=== PATIENT | female | born 1950 | race Caucasian/White ===

== ENCOUNTER 2019-12-15 07:10 | Day surgery (SDC) | payer OTHER ==
--- OUTSIDE RECORDS SUMMARY | 2019-12-15 07:13 | XMS REPORT ---
:1950 [facility] Address [address] [place] [address] Care Team Providers Name Role Phone Unavailable Unavailable Unavailable Problems This patient has no known problems. Allergies, Adverse Reactions, Alerts This patient has no known allergies or adverse reactions. Medications This patient has no known medications. Results Test Description Test Time Test Comments Text Results Atomic Results Result Comments Comprehensive Metabolic Panel 2019-10-02 20:45:00 Test Item Value Reference Range Comments Sodium Level (test code=Sodium Level) 139.0 mmol/L 135.0-145.0 Potassium Level (test code=Potassium Level) 4.7 mmol/L 3.5-5.1 Chloride Level (test code=Chloride Level) 101 mmol/L 98-105 CO2 (test code=CO2) 25 mmol/L 22-29 Anion Gap (test code=Anion Gap) 13 mmol/L 7-16 BUN (test code=BUN) 16.30 mg/dL 8.00-23.00 Creatinine Level (test code=Creatinine Level) 1.00 mg/dL 0.50-0.90 BUN/Creat Ratio (test code=BUN/Creat Ratio) 16 Glucose Level (test code=Glucose Level) 85 mg/dL 70-115 Calcium Level (test code=Calcium Level) 9.8 mg/dL 8.3-10.5 Alk Phos (test code=Alk Phos) 77 U/L 35-104 Bilirubin Total (test code=Bilirubin Total) 0.8 mg/dL 0.1-0.9 Albumin Level (test code=Albumin Level) 4.9 g/dL 3.5-5.2 Protein Total (test code=Protein Total) 7.6 g/dL 6.4-8.3 ALT (test code=ALT) 12 U/L 1-33 AST (test code=AST) 21 U/L 1-32 Globulin (test code=Globulin) 2.7 g/dL 2.9-3.1 A/G Ratio (test code=A/G Ratio) 1.8 ratio Lipid [id number] 20:45:00 Test Item Value Reference Range Comments Cholesterol Total (test 163 mg/dL 0-200 RISK OF HEART DISEASEPublished code=Cholesterol Total) by [place] [employer] Analyte Optimal Borderline Increased RiskCHOL <200 200-239 >240TRIG <150 150-199 >200HDL Male >60 <40HDL Female >60 <50LDL <100 130-159 >160LDL Near optimal is 100-129 Triglycerides (test 57 mg/dL 9-200 code=Triglycerides) HDL (test code=HDL) 70 mg/dL 50-60 LDL (test code=LDL) 81 mg/dL 0-130 The equation being used in this calculation is LDL=(Chol - HDL) - (Trig / 5) VLDL (test code=VLDL) 11 mg/dL 5-40 The equation being used in this calculation is VLDL=Trig / 5 Chol/HDL (test 2.3 ratio 0.0-4.4 code=Chol/HDL) LDL/HDL Ratio (test 1 The equation being used in this code=LDL/HDL Ratio) calculation is LDL/HDL Ratio=LDL Calc/HDL Chol Comprehensive Metabolic [id number] 20:45:00 Test Item Value Reference Range Comments Sodium Level (test 139.0 mmol/L 135.0-145.0 code=Sodium Level) Potassium Level (test 4.7 mmol/L 3.5-5.1 code=Potassium Level) Chloride Level (test 101 mmol/L 98-105 code=Chloride Level) CO2 (test code=CO2) 25 mmol/L 22-29 Anion Gap (test 13 mmol/L 7-16 code=Anion Gap) BUN (test code=BUN) 16.30 mg/dL 8.00-23.00 Creatinine Level (test 1.00 mg/dL 0.50-0.90 code=Creatinine Level) BUN/Creat Ratio (test 16 code=BUN/Creat Ratio) Glucose Level (test 85 mg/dL 70-115 code=Glucose Level) Calcium Level (test 9.8 mg/dL 8.3-10.5 code=Calcium Level) Alk Phos (test code=Alk 77 U/L 35-104 Phos) Bilirubin Total (test 0.8 mg/dL 0.1-0.9 code=Bilirubin Total) Albumin Level (test 4.9 g/dL 3.5-5.2 code=Albumin Level) Protein Total (test 7.6 g/dL 6.4-8.3 code=Protein Total) ALT (test code=ALT) 12 U/L 1-33 AST (test code=AST) 21 U/L 1-32 Globulin (test 2.7 g/dL 2.9-3.1 code=Globulin) A/G Ratio (test code=A/G 1.8 ratio Ratio) eGFR AA (test code=eGFR >60 mL/min/1.73 m2 eGFR (estimated AA) Glomerular Filtration Rate) is an estimated value, calculated from the patient's serum creatinine using the MDRD equation. It is NOT the patient's actual GFR. The eGFR provides a more clinically useful measure of kidney disease than serum creatinine alone.This calculation takes sex and race into account, if the information is provided. If the race is not provided, and the patient is -[place]ian, multiply by 1.212. If sex is not provided, and the patient is female, multiply by 0.742. Results for patients <18 years of age have not been validated by the MDRD study and should be interpreted with caution. eGFR Result Interpretation:eGFR > or=60 is in the Normal RangeeGFR < 60 may mean kidney diseaseeGFR < 15 may mean kidney failure Ranges recommended by the National Kidney Foundation, http://nkdep.nih.gov Pro B Natriuretic [id number] 20:45:00 Test Item Value Reference Range Comments NT-proBNP (test code=NT-proBNP) 69 pg/mL 0-124 Comprehensive Metabolic [id number] 20:45:00 Test Item Value Reference Range Comments Sodium Level (test 139.0 mmol/L 135.0-145.0 code=Sodium Level) Potassium Level (test 4.7 mmol/L 3.5-5.1 code=Potassium Level) Chloride Level (test 101 mmol/L 98-105 code=Chloride Level) CO2 (test code=CO2) 25 mmol/L 22-29 Anion Gap (test 13 mmol/L 7-16 code=Anion Gap) BUN (test code=BUN) 16.30 mg/dL 8.00-23.00 Creatinine Level (test 1.00 mg/dL 0.50-0.90 code=Creatinine Level) BUN/Creat Ratio (test 16 code=BUN/Creat Ratio) Glucose Level (test 85 mg/dL 70-115 code=Glucose Level) Calcium Level (test 9.8 mg/dL 8.3-10.5 code=Calcium Level) Alk Phos (test code=Alk 77 U/L 35-104 Phos) Bilirubin Total (test 0.8 mg/dL 0.1-0.9 code=Bilirubin Total) Albumin Level (test 4.9 g/dL 3.5-5.2 code=Albumin Level) Protein Total (test 7.6 g/dL 6.4-8.3 code=Protein Total) ALT (test code=ALT) 12 U/L 1-33 AST (test code=AST) 21 U/L 1-32 Globulin (test 2.7 g/dL 2.9-3.1 code=Globulin) A/G Ratio (test code=A/G 1.8 ratio Ratio) eGFR AA (test code=eGFR >60 mL/min/1.73 m2 eGFR (estimated AA) Glomerular Filtration Rate) is an estimated value, calculated from the patient's serum creatinine using the MDRD equation. It is NOT the patient's actual GFR. The eGFR provides a more clinically useful measure of kidney disease than serum creatinine alone.This calculation takes sex and race into account, if the information is provided. If the race is not provided, and the patient is -[place]banian, multiply by 1.212. If sex is not provided, and the patient is female, multiply by 0.742. Results for patients <18 years of age have not been validated by the MDRD study and should be interpreted with caution. eGFR Result Interpretation:eGFR > or=60 is in the Normal RangeeGFR < 60 may mean kidney diseaseeGFR < 15 may mean kidney failure Ranges recommended by the National Kidney Foundation, http://nkdep.nih.gov eGFR Non-AA (test 54.97 mL/min/1.73 eGFR (estimated code=eGFR Non-AA) m2 Glomerular Filtration Rate) is an estimated value, calculated from the patient's serum creatinine using the MDRD equation. It is NOT the patient's actual GFR. The eGFR provides a more clinically useful measure of kidney disease than serum creatinine alone.This calculation takes sex and race into account, if the information is provided. If the race is not provided, and the patient is -[place]ian, multiply by 1.212. If sex is not provided, and the patient is female, multiply by 0.742. Results for patients <18 years of age have not been validated by the MDRD study and should be interpreted with caution. eGFR Result Interpretation:eGFR > or=60 is in the Normal RangeeGFR < 60 may mean kidney diseaseeGFR < 15 may mean kidney failure Ranges recommended by the National Kidney Foundation, http://nkdep.nih.gov Automated [id number] 20:14:33 Test Item Value Reference Range Comments Neutro Auto (test code=Neutro Auto) 56.3 % 36.0-70.0 Lymph Auto (test code=Lymph Auto) 28.0 % 12.0-44.0 Ritchie Auto (test code=Ritchie Auto) 8.1 % 0.0-11.0 Eos, Auto (test code=Eos, Auto) 6.3 % 0.0-7.0 Basophil Auto (test code=Basophil Auto) 1.1 % 0.0-2.0 Neutro Absolute (test code=Neutro Absolute) 2.5 x10 1.6-7.4 Lymph Absolute (test code=Lymph Absolute) 1.25 x10 .50-4.60 [place] Absolute (test code=[place]itchie Absolute) .36 x10 .00-1.20 Eos Absolute (test code=Eos Absolute) 0.28 x10 0.00-0.74 Baso Absolute (test code=Baso Absolute) 0.05 x10 0.00-0.21 IG [id number] 20:14:33 Test Item Value Reference Range Comments IG (test code=IG) 0.2 % 0.0-5.0 IG Abs (test code=IG Abs) 0 x10 Complete Blood Count with [id number] 20:14:32 Test Item Value Reference Range Comments WBC (test code=WBC) 4.5 x10 4.4-10.5 RBC (test code=RBC) 4.11 x10 3.75-5.20 Hgb (test code=Hgb) 12.9 g/dL 12.2-14.8 Hct (test code=Hct) 38.9 % 36.5-44.4 MCV (test code=MCV) 94.60 fL 80.00-100.00 MCHC (test code=MCHC) 33.20 g/dL 32.00-37.50 RDW CV (test code=RDW CV) 11.9 % 11.5-14.5 MCH (test code=MCH) 31.4 pg 27.0-32.5 Platelets (test 310.0 x10 140.0-440.0 code=Platelets) MPV (test code=MPV) 9.4 fL Slide Review (test code=Slide Auto Auto Result created by Review) [id number]_[id number]_AUTO nRBC (test code=nRBC) 0 NRBC Abs (test code=NRBC Abs) 0.00 x10 IPF (test code=IPF) 0 %
[2019-12-15] MEDS ORDERED: Ringers Lactate 1,000 ML IV ONE (07:53)
[2019-12-15] MEDS ORDERED: LIDOCAINE 1% MPF 5 ML VIAL ONE (08:17)
[2019-12-15] MEDS ORDERED: propofoL 200 MG/20 ML VIAL IV ONE (08:17)
--- NOTE | 2019-12-15 08:36 | ENDO RPT ---
[address], [address] COLONOSCOPY PROCEDURE REPORT EXAM DATE: 12/15/2019 PATIENT NAME: Linda Darden MR #: [id number] BIRTHDATE: 1950 ATTENDING: Kevan Morris DR STATUS: outpatient STEAMBOAT INSPECTOR: Mary Brooks RN and Maciel Linton [facility] INDICATIONS: The patient is a 69 yr old Female here for a colonoscopy due to Surgical planning - tattoo of cancer PROCEDURE PERFORMED: Flexible Sigmoidoscopy MEDICATIONS: Per Anesthesia. ESTIMATED BLOOD LOSS: None CONSENT: The patient understands the risks and benefits of the procedure and understands that these risks include, but are not limited to: sedation, allergic reaction, infection, perforation and/or bleeding. Alternative means of evaluation and treatment include, among others: physical exam, x-rays, and/or surgical intervention. The patient elects to proceed with this endoscopic procedure. DESCRIPTION OF PROCEDURE: During intra-op preparation period all mechanical medical equipment was checked for proper function. Hand hygiene and appropriate measures for infection prevention was taken. Procedure, possible complications, alternatives including, but not limited to possibility of bleeding, perforation, tear, infection, sepsis, need for surgery, need for blood transfusion, were explained to the patient. After the risks, benefits and alternatives of the procedure were thoroughly explained, Informed consent was verified, confirmed and timeout was successfully executed by the treatment team. The patient was placed in the left lateral position. A digital rectal exam was performed and revealed internal hemorrhoids. After appropriate level of anesthesia, the scope was passed. The [id number] ([id number]) endoscope was introduced through the anus and advanced to the sigmoid colon. The quality of the prep was fair. The instrument was then slowly withdrawn as the colon was fully examined. Scope withdrawal time was 5 minutes. COLON FINDINGS: A one-third circumferential firm, ulcerated and fungating mass was found in the sigmoid colon @ approximately 20 cm from anal verge. A tattoo was applied. Injection (tattooing) was performed. Retroflexion was not performed. The scope was then completely withdrawn from the patient and the procedure terminated. ADVERSE EVENTS: There were no complications. IMPRESSIONS: One-third circumferential mass was found in the sigmoid colon; a tattoo was applied; Injection (tattooing) was performed RECOMMENDATIONS: surgery discussed and planning RECALL: Kevan Morris DR eSigned: Kevan Morris DR 12/15/2019 8:36 AM cc: CPT CODES: ICD9 CODES: PATIENT NAME: Lnida DardenLucho MR#: [id number]
[2019-12-15 09:42] LABS: Absolute Lymphocytes (CBC) 1.1 K/uL (0.7-4.9); Basophils % 0.7 % (0-1.3); Hematocrit 28.7 % (36.0-45.0); Lymphocytes % 24.6 % (15.3-44.8); MPV 7.5 fL (7.6-11.3); RBC Red Blood Cell Count 3.11 M/uL (3.86-4.86)
[2019-12-15 09:45] LABS: Protime INR 1.02
[2019-12-15 09:57] LABS: Albumin 3.6 g/dL (3.4-5.0); Bilirubin Direct 0.2 mg/dL (0-0.2); Potassium 3.7 mmol/L (3.5-5.1); Protein, Total 6.4 g/dL (6.4-8.2)
[2019-12-15 10:21] VITALS: O2SAT 96
[2019-12-15 10:29] VITALS: BP 109/67; TEMP 98.5
--- NOTE | 2019-12-15 12:51 | RAD REPORT ---
EXAM DESCRIPTION: CT - Chest Abdomen Pelvis W Cont - 12/15/2019 11:17 am CLINICAL HISTORY: Hematochezia. Abdominal pain. Sigmoid mass COMPARISON: CT chest March 26, 2017 TECHNIQUE: Computed axial tomography of the chest, abdomen and pelvis was obtained. 100 cc Isovue-30 0 was administered intravenously. Oral contrast was given All CT scans are performed using dose optimization technique as appropriate and may include automated exposure control or mA/KV adjustment according to patient size. FINDINGS: Calcified granuloma right lower lobe. The left lung is clear. No mediastinal or hilar lymphadenopathy. No pleural effusion. No pericardial effusion The liver, spleen, pancreas, adrenals and kidneys appear unremarkable. Normal appendix. No evidence of diverticulitis. A sigmoid mass is not clearly visualized on this exam. Bowel masses at times can be difficult to visu jeimy on CT. No contrast was present within the sigmoid colon during the imaging. No ascites. No omental/ mesenteric nodules noted IMPRESSION: A sigmoid colon mass is not clearly visualized on this exam. Contrast was not present wi thin the sigmoid during the imaging. If clinically indicated a CT scan of the pelvis with rectal cont rast may helpful
== END 2019-12-15 11:15 | disposition home or self-care (01) ==
LOC: OR 07:10
PROVIDERS: ATTEND Surgery
PROC: 3E0H8GC Introduction of Other Therapeutic Substance into Lower GI, Via Natural or Artificial Opening Endoscopic (ICD-10-PCS; principal; 2019-12-15 08:30)
DX: C18.7 Malignant neoplasm of sigmoid colon (principal); K64.8 Other hemorrhoids; I10 Essential (primary) hypertension; Z79.02 Long term (current) use of antithrombotics/antiplatelets; Z88.6 Allergy status to analgesic agent; Z83.3 Family history of diabetes mellitus; Z82.49 Family history of ischemic heart disease and other diseases of the circulatory system
CPT/HCPCS: 85025; 36415; 86900; 86850; 84132; 85610; 86901; 85730; 82378; 82248; 80053; 82105; 71260; 74177; 45335; Q9967; J2704; J7120

== ENCOUNTER 2020-01-08 07:03 | Inpatient (IN) | payer OTHER, MEDICARE ==
[2020-01-03 15:06] LABS: Potassium 3.8 mmol/L (3.5-5.1)
[2020-01-03 15:07] LABS: Absolute Lymphocytes (CBC) 1.4 K/uL (0.7-4.9); Basophils % 1.3 % (0-1.3); Hematocrit 32.3 % (36.0-45.0); Lymphocytes % 23.4 % (15.3-44.8); MPV 7.8 fL (7.6-11.3); RBC Red Blood Cell Count 3.59 M/uL (3.86-4.86)
[2020-01-03 15:11] LABS: Protime INR 0.92
--- OUTSIDE RECORDS SUMMARY | 2020-01-08 07:07 | XMS REPORT ---
:1950 [facility] Address [address] [place] [address] Care Team Providers Name Role Phone Unavailable [...] Ratio (test code=A/G Ratio) 1.8 ratio Lipid [id number] 20:45:00 Test Item Value Reference Range Comments Cholesterol Total (test 163 mg/dL 0-200 RISK OF HEART DISEASEPublished code=Cholesterol Total) by [place] [employer] Analyte Optimal Borderline Increased RiskCHOL [...] is LDL/HDL Ratio=LDL Calc/HDL Chol Comprehensive Metabolic [id number] 20:45:00 Test Item Value Reference Range Comments [...] is not provided, and the patient is -Burmese, multiply by 1.212. If sex is not [...] National Kidney Foundation, http://nkdep.nih.gov Pro B Natriuretic [id number] 20:45:00 Test Item Value Reference Range Comments NT-proBNP (test code=NT-proBNP) 69 pg/mL 0-124 Comprehensive Metabolic [id number] 20:45:00 Test Item Value Reference Range Comments [...] is not provided, and the patient is -Burmese, multiply by 1.212. If sex is not [...] is not provided, and the patient is -Burmese, multiply by 1.212. If sex is not [...] by the National Kidney Foundation, http://nkdep.nih.gov Automated [id number] 20:14:33 Test Item Value Reference Range Comments Neutro Auto (test code=Neutro Auto) 56.3 % 36.0-70.0 Lymph Auto (test code=Lymph Auto) 28.0 % 12.0-44.0 [place] Auto (test code=[place] Auto) 8.1 % 0.0-11.0 Eos, Auto (test code=Eos, Auto) 6.3 % 0.0-7.0 Basophil Auto (test code=Basophil Auto) 1.1 % 0.0-2.0 Neutro Absolute (test code=Neutro Absolute) 2.5 x10 1.6-7.4 Lymph Absolute (test code=Lymph Absolute) 1.25 x10 .50-4.60 [place] Absolute (test code=[place] Absolute) .36 x10 .00-1.20 Eos Absolute (test code=Eos Absolute) 0.28 x10 0.00-0.74 Baso Absolute (test code=Baso Absolute) 0.05 x10 0.00-0.21 IG [id number] 20:14:33 Test Item Value Reference Range Comments IG (test code=IG) 0.2 % 0.0-5.0 IG Abs (test code=IG Abs) 0 x10 Complete Blood Count with [id number] 20:14:32 Test Item Value Reference Range Comments [...]
[2020-01-08] MEDS ORDERED: CEFAZOLIN/SWI 1gm 1 GM/10 ML SYR ONE (07:22)
[2020-01-08] MEDS ORDERED: Ringers Lactate 1,000 ML IV ONE (07:22)
[2020-01-08] MEDS ORDERED: propofoL 200 MG/20 ML VIAL IV ONE (07:46)
[2020-01-08] MEDS ORDERED: ROCURONIUM 50 MG/5 ML VIAL IV ONE ×2 (07:47→10:21)
[2020-01-08] MEDS ORDERED: GLYCOPYRROLATE 0.2 MG/ML SYR ONE ×2 (07:48→07:49)
[2020-01-08] MEDS ORDERED: SCOPOLAMINE HYDROBROMIDE PATCH TD ONE (07:48)
[2020-01-08] MEDS ORDERED: FENTANYL CITR 250 MCG/5 ML ONE ×2 (07:49→12:06)
[2020-01-08] MEDS ORDERED: LIDOCAINE 2% MPF 5 ML VIAL ONE (07:49)
[2020-01-08] MEDS ORDERED: ONDANSETRON 4 MG/2 ML VIAL ONE (07:51)
[2020-01-08] MEDS ORDERED: NEOSTIGMINE 1 MG/ML -5 ML ONE (07:52)
[2020-01-08] MEDS ORDERED: MIDAZOLAM HCL 2 MG/2 ML INJ ONE (07:55)
[2020-01-08] MEDS ORDERED: NA CHLORIDE 0.9% 1,000 ML ONE ×3 (08:13→13:54)
[2020-01-08] MEDS ORDERED: BUPIVACA 0.5%/EPI 0.0005%/PF 30 ML VIAL ONE (08:31)
[2020-01-08] MEDS ORDERED: EPHEDRINE SULF 50 MG/ML VIAL ONE ×2 (09:06→11:55)
[2020-01-08] MEDS ORDERED: MORPHINE 10 MG/ML VIAL ONE (09:36)
[2020-01-08] MEDS: NA CHLORIDE 0.9% 1,000 ML ONE ×2 (11:08→11:09)
[2020-01-08] MEDS: Ringers Lactate 1,000 ML IV ONE ×2 (11:09→13:51)
[2020-01-08] MEDS ORDERED: LABETALOL 20 MG/4ML SYRINGE IV ONE (12:12)
--- NOTE | 2020-01-08 14:59 | P.OP ---
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
[2020-01-08] MEDS ORDERED: HYDROMORPHONE/PCA 10 MG/50 ML SYR IV PRN (15:19)
[2020-01-08] MEDS ORDERED: NALOXONE 0.4 MG/ML VIAL IV PRN (15:19)
[2020-01-08 16:28] VITALS: BMI 30.7
[2020-01-08] MEDS ORDERED: INSULIN -REGULAR HUMAN 50 UNIT/0.5 ML ML SQ SCH (16:30)
[2020-01-08] MEDS ORDERED: KCL 20 MEQ/100 mL IVPB 20 MEQ/100 ML BAG IV SCH (17:00)
[2020-01-08] MEDS: D5 0.45 NS 1,000 ML IV SCH (17:03)
[2020-01-08] MEDS: Levofloxacin500mg IV 500 MG/100 ML BAG IV SCH (17:04)
[2020-01-08] MEDS: METRONIDAZOLE 500mg IVPB 500 MG/100 ML BAG IV SCH (17:05)
[2020-01-08] MEDS: INSULIN -REGULAR HUMAN 50 UNIT/0.5 ML ML SQ SCH (18:00)
[2020-01-08] MEDS ORDERED: Ringers Lactate 500 ML IV ONE (18:44)
[2020-01-08 19:01] LABS: Hematocrit 29.2 % (36.0-45.0)
[2020-01-09] MEDS: METRONIDAZOLE 500mg IVPB 500 MG/100 ML BAG IV SCH ×4 (00:07→17:00)
[2020-01-09] MEDS: D5 0.45 NS 1,000 ML IV SCH ×3 (00:07→14:17)
[2020-01-09] MEDS: HYDROMORPHONE HCL 1 MG/ML INJ IV PRN ×6 (00:10→21:22)
--- NOTE | 2020-01-09 00:37 | OP ---
Date of Procedure: 01/08/2020 Surgeon: Brittany Morris MD, Supervisor [employer]iliaries: parts room assistantJc as well as co-surgeon/surgical services assistant Dr. Eduardo Suarez. Preoperative Diagnosis: Rectosigmoid cancer. Postoperative Diagnosis: Rectosigmoid cancer. Procedure Performed: Laparoscopic converted to open left proctosigmoid colectomy. Secondary procedure was proctoscope. Anesthesia: General endotracheal plus local with 0.5% Marcaine with epinephrine. Estimated Blood Loss: 50 mL. Specimen: 1.Rectosigmoid colon. 2.Additional rectal margin which is marked as true margin. Findings: Tattoo the area of the lesion. There was a small ulceration at the residual cancer only n oted on the back table examination of the specimen. Patient had a nasogastric and urinary catheter p laced and left this in. After the procedure, patient was transferred recovery in good condition. Procedure In Detail: After informed was obtained, patient was brought to the operating room, prepped and draped in the usual sterile fashion. After adequate anesthesia was achieved, a supraumbilical a river was anesthetized with 0.25% Marcaine, sharply incised. A 5 mm trocar was introduced in the abdom en without complication. Insufflation was obtained at 15 mmHg at this time. The area was inspected. There was no injury to vital structures upon entry the abdomen at this point. Additional trocar si te was chosen in the right lower quadrant. This was similarly anesthetized, sharply incised. A 5 mm trocar was introduced here with no evidence of complication. The umbilical trocar was then up-sized to a 12 mm under direct visualization without evidence of complication. Additional trocar chosen in the left mid abdomen. This was similarly anesthetized, sharply incised, a 5 mm trocar was introduce d in the abdomen without evidence of complication. The left lower quadrant trocar was then up-sized to a 12 mm under direct visualization without evidence of complication. Additional trocar placed in the suprapubic position, this was This was similarly anesthetized, sharply incised, a 5 mm trocar was introduced the abdomen without evidence of complication. The patient was positioned lifting to the right and head down. Graspers and flip were used to grasp and flip the small bowel into the right hy pochondrium. The liver was inspected at this time and the peritoneal cavity inspected at this time. There was no evidence of peritoneal metastasis or any other metastasis evident on any structures vis ualized throughout the procedure. The rectum was inspected at this time and the tattooing portion wa s found to be predominantly at the rectosigmoid near the confluence of the peritoneal reflection. Th e area was inspected at this point, and there was no evidence of metastasis or transmural involvement of the cancer at this point. I then found and dissected the inferior mesenteric vein at this point at the inferior edge of the pancreas and skeletonized the structure and clipped it with a titanium cl ip and ligated with the LigaSure device. I then continued to dissect out the inferior mesenteric art yuniel planning to spare the left colic branch. At this point, I dissected this circumferentially out a nd created a window under the IMV, dissecting between Toldt fascia and Gerota's fascia laterally on t he colon leaving the MAXINE intact at this point as I continued to move this laterally. I turned my att ention back to the MAXINE and found that the takeoff of the left colic was somewhat higher than anticipa brittany, as such I turned my attention back down to the pelvis, inspecting this area for mobility of the colon. I found the patient had significant intraabdominal pelvic adhesions from previous abdominal s urgery as she had a hysterectomy before in the past. I took some time taking these down using a comb ination electrocautery, blunt dissection and LigaSure device. As such, these were thick fibrous adhe sions and made dissection difficult, as such I decided to convert to an open procedure at this point, I therefore decompressed the abdomen, removed all trocars and extended my midline trocar to a normal midline laparotomy incision. The abdomen was then opened in its entirety under direct visualization without evidence of complication. I then continued to dissect the colon beginning with the white li ne of Toldt laterally and the left lateral colic gutter. The white line was taken down and the colon was mobilized medially. I continued to mobilize the splenic flexure. At this point, I felt down to the rectal confluence and found that there was no palpable masses throughout this, although the canc er previously discovered and biopsy confirmed this adenocarcinoma at approximately 20 cm was fulgurat ed and removed for the most part during endoscopy. The remaining cancer was fulgurated and as such, it was not easily palpable or was not palpable throughout the procedure. I therefore decided to take an additional margin of sigmoid colon at this point and after spending extensive adhesiolysis taking the lateral attachments down, I mobilized the colon sparing the left branch of the colic artery. I then created a window at the just beyond the sigmoid colon on the left colon. A window was created i n the mesentery using an electrocautery. The LigaSure device was used to take the mesentery slightly superiorly towards the wall of the colon and the MARSHAL-75 blue load was fired across the colon at this point with good hemostasis and good staple closure. I then continued to take the left colon down al dante with the associated lymph nodes down to the rectal confluence. I did a mesorectal excision at th is point, taking down the lateral stalks, mobilizing all the various adhesion bands from a bladder. The residual scar tissue was taken down from the vagina as well as the pelvic sidewalls. After this was mobilized, I open the peritoneal reflection and retracted the colon slightly into the abdomen and fired the curve contour TA stapler with a green load and the specimen was then removed and placed on the back table. I opened the specimen, found that the area of ulceration consistent with previous c ancer appeared to be near the distal margin as such I decided to take an additional margin at this po int, I requested the assistance of Dr. Suarez, who came in and helped me with this portion of proced ure. Dr. Suarez entered and assisted me and mobilizing the residual rectal stump and be on the kaitlyn toneal reflection circumferentially not including alleviators. The rectal stump was brought into the field and additional margin was planned at this point. I placed a proctoscope at this point after s crubbing out and inspected the anus and rectum for any evidence of residual cancer, which was not kadi reciated at this point. Dr. Suarez then took a look himself and also by report, found no evidence o f residual cancer. At this point, as such, I scrubbed back in and Dr. Suarez and I both prepped and scrubbed ourselves once again entering the field. We mobilized the rectal stump and took an additio nal 4 cm margin with the same said contour green load stapler. At this point, this was the true dist al margin was marked with a marking stitch, which was the distal extent of the resection and sent off for pathologic examination. All the tattooed material was removed at this point. Dr. Suarez then performed another proctoscopy and did not see any evidence of cancer or any tattooing at this point, other residual colon. As such, I turned my attention back to the preparation of the anastomosis. Th e colon was easy to place into the pelvis without tension and fell easily into here after the previou s mobilization of splenic flexure and as such I used a pursestring device after preparing and clearin g the adipose tissue off the cut edge of the previous left colon staple line. The pursestring device was fired and the residual tissue was cut using a 10 blade. I then opened the end of the colon and placed the anvil in and secured using the attached pursestring device. I cleared once again some fat ty material from the anvil landing zone and Dr. Suarez went below to fire the powered EEA 29 stapler . He passed the stapler easily into the field and placed the spike through the previous staple line. There was good hemostasis at this point. No additional hemostatic maneuvers were required and the anvil was secured to this spike at this point and the stapler was then engaged and fired. I then gra sped the colon and the Dr. Suarez performed an additional proctoscopy and leak test at this point, w hich was found to be intact with no leakage. The both donuts were intact at this point. I then copi ously irrigated the abdomen total completely clear and suctioned out the affluent. There was no verna tional hemostatic measures required. I then placed the omentum around the anastomosis after irrigati ng the bowel multiple times and suctioning out. I then closed the patient's abdominal wall partially with a #1 looped PDS. I placed a Ky-Kathleen suture passer through the right lower quadrant 12 mm trocar hole and closed this with a single interrupted 0-Vicryl suture with good approximation of t issues. I then continued to close the abdomen protecting the bowel with fish until the very end of t he procedure and closed the abdomen with a #1 looped PDS with good approximation of tissues. I then copiously irrigated the patient's subcutaneous tissues and all skin incisions were closed with interr upted nacho and a sterile dressing. Abdominal binder placed over top. Patient tolerated the proce dure without evidence of complication, transecting good condition. All counts were correct at the en d of case. MANUEL/EUNICE Voice ID: [id number] Report ID: [id number]
[2020-01-09 04:27] LABS: Hematocrit 28.7 % (36.0-45.0)
[2020-01-09 04:37] LABS: Albumin 2.7 g/dL (3.4-5.0); Bilirubin Total 0.6 mg/dL (0.2-1.0); Magnesium 1.7 mg/dL (1.8-2.4); Phosphorus 2.3 mg/dL (2.5-4.9); Potassium 3.8 mmol/L (3.5-5.1); Protein, Total 5.4 g/dL (6.4-8.2)
[2020-01-09 04:47] LABS: Protime INR 1.04
[2020-01-09] MEDS: INSULIN -REGULAR HUMAN 50 UNIT/0.5 ML ML SQ SCH ×5 (05:41→21:00)
[2020-01-09] MEDS: POTASS/SODIUM PHOSPHATE 1 PKT POWD.PACK PO SCH ×3 (07:00→08:52)
[2020-01-09] MEDS ORDERED: POTASSIUM 25 MEQ EFFERV TAB PO ONE (07:00)
[2020-01-09] MEDS ORDERED: MAGNESIUM SULFATE 1 gm IVPB 1 GM/100 ML BAG IV ONE (07:07)
[2020-01-09] MEDS: ENOXAPARIN 40 MG/0.4 ML SQ SCH (09:05)
[2020-01-09 12:16] LABS: Hematocrit 28.2 % (36.0-45.0)
[2020-01-09] MEDS: Levofloxacin500mg IV 500 MG/100 ML BAG IV SCH (16:00)
[2020-01-09 19:53] LABS: Hematocrit 27.5 % (36.0-45.0)
[2020-01-10] MEDS: D5 0.45 NS 1,000 ML IV SCH ×3 (00:08→09:22)
[2020-01-10] MEDS: METRONIDAZOLE 500mg IVPB 500 MG/100 ML BAG IV SCH ×2 (00:08→05:34)
[2020-01-10] MEDS: HYDROMORPHONE HCL 1 MG/ML INJ IV PRN ×2 (00:13→05:35)
[2020-01-10 04:19] LABS: Hematocrit 26.9 % (36.0-45.0)
[2020-01-10 04:37] LABS: Albumin 2.4 g/dL (3.4-5.0); Bilirubin Total 0.6 mg/dL (0.2-1.0); Phosphorus 1.3 mg/dL (2.5-4.9); Potassium 3.8 mmol/L (3.5-5.1); Protein, Total 5.5 g/dL (6.4-8.2)
[2020-01-10] MEDS ORDERED: POTASSIUM 25 MEQ EFFERV TAB PO ONE (06:20)
[2020-01-10] MEDS: POTASS/SODIUM PHOSPHATE 1 PKT POWD.PACK PO SCH ×3 (07:00→09:19)
[2020-01-10] MEDS: INSULIN -REGULAR HUMAN 50 UNIT/0.5 ML ML SQ SCH ×4 (07:30→21:00)
[2020-01-10] MEDS: ENOXAPARIN 40 MG/0.4 ML SQ SCH ×2 (07:55→07:57)
--- NOTE | 2020-01-10 09:00 | P.PN ---
Subjective Date of Service: 01/09/20 Chief Complaint: S/P Rectosigmoid Colectomy Subjective: Improving (Patient feels well, sitting up in Bed, pain under control , had some hypotension to 90s systolic, but HR stable.) Physical Examination - Vital Signs Temperature: 98.8 F Blood Pressure: 111/58 Pulse: 90 Respirations: 16 Pulse Ox (%): 90 - Physical Exam General: Alert, In no apparent distress, Cooperative HEENT: Mucous membr. moist/pink Neck: Supple Respiratory: Clear to auscultation bilaterally, Diminished Cardiovascular: Normal pulses, Regular rate/rhythm Gastrointestinal: Other (soft, mild appropriate TTP, mild distention, Incision clean and dry, binder in place. ) Integumentary: No rashes, No breakdown Neurological: Normal speech, Normal affect Urinary: Pisano catheter - Studies Laboratory Data (last 24 hrs) 01/10/20 03:55: Hgb 8.8 L, Hct 26.9 L 01/10/20 03:55: Sodium 136, Potassium 3.8, BUN 6 L, Creatinine 0.84, Glucose 127 H, Phosphorus 1.3 L, Magnesium 2.0, Total Bilirubin 0.6, AST 20, ALT 15, Alkaline Phosphatase 55 01/09/20 19:36: Hgb 9.0 L, Hct 27.5 L 01/09/20 11:55: Hgb 9.3 L, Hct 28.2 L Assessment And Plan - Current Problems (Diagnosis) (1) Rectosigmoid cancer Onset Date: ~01/09/20 Current Visit: Yes Status: Acute Plan: POD #1 S/P Lap converted to open Rectosigmoid colectomy with primary anastamosis - Neuro: continue current IV pain regime - CVS: patient received bolus IV fluids of LR. Intermittent tachycardia likley pain related, hypotension stable and improving to 100s systolic - Pulm: CTA, but IS ~500cc, continue incentive spirometry with goal 15cc/kg - GI: continue serial exams, keep abdominal binder, await bowel function, has passed minimal gas - Renal: catheter in place, good urine output, clear urine - FEN: IVF @ 125cc/hr. continue potassium, magnesium, phos replacement protocol , DC NG tube start clears - ID: [email or web address] / flagyl, to DC tomorrow - Prophylaxis: start lovenox, SCDs, insulin sliding scale - PT: ambulate with assist
--- NOTE | 2020-01-10 09:12 | P.PN ---
Subjective Date of Service: 01/10/20 Chief Complaint: S/P Rectosigmoid Colectomy Subjective: Improving (Patient is ambulatory, tolerated clears, no gas last evening.) Physical Examination - Vital Signs Temperature: 98.8 F Blood Pressure: 111/58 Pulse: 90 Respirations: 16 Pulse Ox (%): 90 - Physical Exam General: Alert, In no apparent distress, Cooperative HEENT: Mucous membr. moist/pink Neck: Supple Respiratory: Clear to auscultation bilaterally, Normal air movement Cardiovascular: No edema, Normal pulses, Regular rate/rhythm Gastrointestinal: Other (soft, mild appropriate TTP, mild disention, incision clean and dry) Integumentary: No rashes Neurological: Normal speech, Normal affect Urinary: Bianchi catheter - Studies Laboratory Data (last 24 hrs) 01/10/20 03:55: Hgb 8.8 L, Hct 26.9 L 01/10/20 03:55: Sodium 136, Potassium 3.8, BUN 6 L, Creatinine 0.84, Glucose 127 H, Phosphorus 1.3 L, Magnesium 2.0, Total Bilirubin 0.6, AST 20, ALT 15, Alkaline Phosphatase 55 01/09/20 19:36: Hgb 9.0 L, Hct 27.5 L 01/09/20 11:55: Hgb 9.3 L, Hct 28.2 L Assessment And Plan - Current Problems (Diagnosis) (1) Rectosigmoid cancer Onset Date: ~01/09/20 Current Visit: Yes Status: Acute Plan: POD #1 S/P Lap converted to open Rectosigmoid colectomy with primary anastamosis - Neuro: continue current IV pain regime, wean IV pain meds, transition to PO - CVS: patient received bolus IV fluids of LR. Intermittent tachycardia likley pain related, hypotension stable and improving to 100s systolic, will decrease IV fluids to 75cc/hr - Pulm: CTA, but IS ~1500cc, continue incentive spirometry with goal 15cc/kg - GI: continue serial exams, keep abdominal binder, await bowel function, has passed minimal gas - Renal: catheter in place, good urine output, clear urine, will DC bianchi today - FEN: IVF @ 75cc/hr. continue potassium, magnesium, phos replacement protocol, DC NG tube start clears - ID: [email or web address] / flagyl, will DC - Prophylaxis: continue lovenox, SCDs, insulin sliding scale to AC/HS - PT: ambulate with assist
[2020-01-10] MEDS ORDERED: HYDROCODONE/APAP 5/325 MG TAB PO PRN (09:26)
[2020-01-10] MEDS: ONDANSETRON 4 MG (ODT) TAB PO PRN (14:22)
[2020-01-11] MEDS: D5 0.45 NS 1,000 ML IV SCH ×2 (00:23→07:19)
[2020-01-11] MEDS: ONDANSETRON 4 MG (ODT) TAB PO PRN (04:04)
[2020-01-11 04:39] LABS: Albumin 2.5 g/dL (3.4-5.0); Bilirubin Total 0.5 mg/dL (0.2-1.0); Magnesium 2.2 mg/dL (1.8-2.4); Phosphorus 1.9 mg/dL (2.5-4.9); Potassium 4.1 mmol/L (3.5-5.1); Protein, Total 5.8 g/dL (6.4-8.2)
[2020-01-11] MEDS: ONDANSETRON 4 MG/2 ML VIAL IV PRN ×3 (07:18→19:14)
[2020-01-11] MEDS: INSULIN -REGULAR HUMAN 50 UNIT/0.5 ML ML SQ SCH ×4 (07:30→21:00)
[2020-01-11] MEDS: POTASS/SODIUM PHOSPHATE 1 PKT POWD.PACK PO SCH ×3 (09:00→11:00)
[2020-01-11] MEDS ORDERED: SODIUM CHLORIDE 0.9% 10ML INJ IV PRN (14:09)
--- NOTE | 2020-01-11 14:39 | P.PN ---
Subjective Date of Service: 01/11/20 Chief Complaint: S/P Rectosigmoid Colectomy Subjective: Other (Patient had been tolerating clears, then fulls, but had some nausea, and an episode of vomiting last evening .) Physical Examination - Vital Signs Temperature: 98.4 F Blood Pressure: 113/71 Pulse: 102 Respirations: 16 Pulse Ox (%): 96 - Physical Exam General: Alert, In no apparent distress, Oriented x3, Cooperative Respiratory: Clear to auscultation bilaterally Gastrointestinal: Non-distended, No ascites, Other (appropriate TTP, incisions clean and dry) Integumentary: No rashes, No breakdown, No significant lesion Neurological: Normal speech - Studies Laboratory Data (last 24 hrs) 01/11/20 03:53: Sodium 139, Potassium 4.1, BUN 7, Creatinine 0.77, Glucose 143 H , Phosphorus 1.9 L, Magnesium 2.2, Total Bilirubin 0.5, AST 17, ALT 15, Alkaline Phosphatase 60 Assessment And Plan - Current Problems (Diagnosis) (1) Rectosigmoid cancer Onset Date: ~01/09/20 Current Visit: Yes Status: Acute Plan: POD #3 S/P Lap converted to open Rectosigmoid colectomy with primary anastamosis - Neuro: continue current IV pain regime, wean IV pain meds, transition to PO - CVS: patient received bolus IV fluids of LR. Intermittent tachycardia likley pain related, hypotension stable and improving to 100s systolic, will decrease IV fluids to 75cc/hr, consider diruresis for mild lower extremity bilateral swelling. Patient normally takes diuresis prior to admission - Pulm: CTA, but IS ~1500cc, continue incentive spirometry with goal 15cc/kg - GI: continue serial exams, keep abdominal binder, await bowel function, has passed minimal gas - Renal: good urine output, clear urine, - FEN: IVF @ 75cc/hr. continue potassium, magnesium, phos replacement protocol, continue clears - ID: levaquin / flagyl, will DC - Prophylaxis: continue lovenox, SCDs, insulin sliding scale to AC/HS - PT: ambulate with assist - consult Dr. Nguyen for medical management
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
--- NOTE | 2020-01-11 15:54 | RAD REPORT ---
EXAM DESCRIPTION: RAD - Chest Single View - 01/11/2020 3:45 pm CLINICAL HISTORY: suspect atelectasis, post surgery Chest pain. COMPARISON: No comparisons FINDINGS: Portable technique limits examination quality. Linear atelectasis is present in the right lung base with elevation the right hemidiaphragm. The lung s are otherwise grossly clear. The heart is normal in size. No displaced fractures.
[2020-01-11] MEDS ORDERED: D5 0.45 NS 1,000 ML IV SCH (16:00)
--- NOTE | 2020-01-11 16:52 | RAD REPORT ---
EXAM DESCRIPTION: US - Extrem Venous W Compress Silas - 01/11/2020 4:40 pm CLINICAL HISTORY: swelling R>L, Post surgery Bilateral leg edema and swelling. COMPARISON: No comparisons TECHNIQUE: Real-time sonographic interrogation of the left and right lower extremity deep venous sys tems was performed. FINDINGS: Normal compressibility, flow augmentation, phasic flow and spontaneous flow is identified in both the left and right lower extremity deep venous systems. Small right Whitaker's cyst noted. IMPRESSION: No sonographic evidence of left or right lower extremity deep venous thrombosis.
[2020-01-11] MEDS: ROSUVASTATIN 10 MG TAB PO SCH (21:00)
[2020-01-11] MEDS: ENOXAPARIN 40 MG/0.4 ML SQ SCH (21:40)
[2020-01-12 06:54] LABS: Absolute Lymphocytes (CBC) 0.8 K/uL (0.7-4.9); Basophils % 0.4 % (0-1.3); Hematocrit 28.1 % (36.0-45.0); Lymphocytes % 7.9 % (15.3-44.8); MPV 7.8 fL (7.6-11.3); RBC Red Blood Cell Count 3.09 M/uL (3.86-4.86)
[2020-01-12 07:09] LABS: Albumin 2.2 g/dL (3.4-5.0); Bilirubin Total 0.4 mg/dL (0.2-1.0); Magnesium 2.1 mg/dL (1.8-2.4); Phosphorus 2.4 mg/dL (2.5-4.9); Potassium 3.8 mmol/L (3.5-5.1); Protein, Total 5.3 g/dL (6.4-8.2)
[2020-01-12] MEDS: INSULIN -REGULAR HUMAN 50 UNIT/0.5 ML ML SQ SCH ×4 (07:30→20:27)
--- NOTE | 2020-01-12 08:38 | P.PN ---
Subjective Date of Service: 01/12/20 Primary Care Provider: Dr. Fountain Chief Complaint: S/P Rectosigmoid Colectomy Subjective: Improving (Patient had no pain, no nausea, tolerating fulls, ambulatory, took no pain meds last evening. no bowel movement yet, no gas.) Physical Examination - Vital Signs Temperature: 98.1 F Blood Pressure: 115/67 Pulse: 111 Respirations: 18 Pulse Ox (%): 92 - Physical Exam General: Alert, In no apparent distress, Cooperative HEENT: Mucous membr. moist/pink Respiratory: Clear to auscultation bilaterally, Normal air movement Cardiovascular: Regular rate/rhythm Gastrointestinal: Other (soft, mild appropriate TTP, ND, incisions remain clean and dry, no discharge) Integumentary: No significant lesion, No tenderness/swelling Neurological: Normal speech, Normal affect - Studies Laboratory Data (last 24 hrs) 01/12/20 05:59: WBC 10.3 D, Hgb 9.1 L, Hct 28.1 L, Plt Count 289 01/12/20 05:59: Sodium 139, Potassium 3.8, BUN 13, Creatinine 0.85, Glucose 109 H, Phosphorus 2.4 L, Magnesium 2.1, Total Bilirubin 0.4, AST 11 L, ALT 14, Alkaline Phosphatase 59 Assessment And Plan - Current Problems (Diagnosis) (1) Rectosigmoid cancer Onset Date: ~01/09/20 Current Visit: Yes Status: Acute Plan: POD #4 S/P Lap converted to open Rectosigmoid colectomy with primary anastamosis - Neuro: wean IV pain meds, transition to PO - CVS: wean IV fluids to 30cc/hr, consider diruresis for mild lower extremity bilateral swelling PRN . Patient normally takes diuresis prior to admission - Pulm: CTA, but IS ~1500cc, continue incentive spirometry with goal 15cc/kg - GI: continue serial exams, keep abdominal binder, await bowel function, has passed minimal gas - Renal: good urine output, clear urine, - FEN: IVF @ 30cc/hr. continue potassium, magnesium, phos replacement protocol, continue full liquid diet - ID: normal WBC / Neutrophils - Prophylaxis: continue lovenox, SCDs, insulin sliding scale to AC/HS - PT: ambulate with assist - consult Dr. Nguyen for medical management - consider starting all home meds
[2020-01-12] MEDS ORDERED: HOME MED 1 EA UNK (Rosuvastatin Calcium [Rosuvastatin Calcium] 20 MG) PO SCH (09:00)
[2020-01-12] MEDS ORDERED: ESCITALOPRAM OXALATE 10 MG PO SCH (09:00)
[2020-01-12] MEDS: D5 0.45 NS 1,000 ML IV SCH ×2 (09:00→20:27)
[2020-01-12] MEDS: PANTOPRAZOLE 40 MG INJ IVP SCH (09:05)
[2020-01-12] MEDS: ESCITALOPRAM 20 MG TAB PO SCH (09:05)
--- NOTE | 2020-01-12 09:31 | P.PN ---
Subjective Date of Service: 01/12/20 Primary Care Provider: Dr. Fountain Chief Complaint: S/P Rectosigmoid Colectomy Subjective: Improving Physical Examination - Vital Signs Temperature: 98.1 F Blood Pressure: 115/67 Pulse: 111 Respirations: 18 Pulse Ox (%): 92 - Physical Exam General: Alert, In no apparent distress, Oriented x3 HEENT: Atraumatic Neck: Supple Respiratory: Clear to auscultation bilaterally, Normal air movement Cardiovascular: Normal pulses, Regular rate/rhythm Gastrointestinal: Normal bowel sounds, Soft and benign, Non-distended, No masses , No rebound, No guarding Integumentary: No erythema, No warmth, No cyanosis Neurological: Normal speech, Normal strength at 5/5 x4 extr, Normal tone - Studies Laboratory Data (last 24 hrs) 01/12/20 21:00: Hgb Cancelled, Hct Cancelled 01/12/20 13:00: Hgb Cancelled, Hct Cancelled 01/12/20 05:59: WBC 10.3 D, Hgb 9.1 L, Hct 28.1 L, Plt Count 289 01/12/20 05:59: Sodium 139, Potassium 3.8, BUN 13, Creatinine 0.85, Glucose 109 H, Phosphorus 2.4 L, Magnesium 2.1, Total Bilirubin 0.4, AST 11 L, ALT 14, Alkaline Phosphatase 59 Medications List Reviewed: Yes Assessment & Plan Discharge Plan: Home Plan to discharge in: 48 Hours Physician Review Additional Text: Impression: Colon cancer status post proctosigmoidectomy, pathology showing moderately differentiated adenocarcinoma Possible postop ileus Postoperative anemia Edema to the lower extremity, right greater than left Hypertension Hyperlipidemia Depression CAD Plan: Colon cancer status post proctosigmoidectomy, pathology showing moderately differentiated adenocarcinoma: Patient is postop surgery. Patient continues to improve. Less edema noted to the lower extremity. Venous Doppler negative. Chest x-ray unremarkable. Encourage incentive spirometer and ambulation. Await echocardiogram. Will decrease IV fluids. Will discuss further with surgery. Anticipate discharge in the next 1-2 days with clinical improvement. Still no passage of gas. Possible postop ileus: Patient improved. No significant nausea. Still no passage of gas. Encouraged incentive spirometer and ambulation. Postoperative anemia: Overall stable. Will monitor closely. Edema to the lower extremity, right greater than left: Venous Doppler negative. Will decrease IV fluids. Encourage ambulation. Hypertension: Blood pressure improved all within normal range. Will consider restarting blood pressure medication with beta-berto if blood pressure increase. Will monitor closely. Hyperlipidemia: Continue Crestor Depression: Continue Lexapro CAD: Patient with history of CAD. In 2015 she had a stress test which was abnormal. She had a heart catheterization thereafter. Patient did not require stents at that time. Cardiology recommended to continue with aspirin and Plavix. Continue to hold aspirin and Plavix at this time. Will discuss with cardiology. Will obtain echocardiogram. Time Spent Managing Pts Care (In Minutes): 55
--- NOTE | 2020-01-12 13:11 | ECHO ---
HEIGHT: 5 ft 8 in WEIGHT: 202 lb 0 oz DATE OF STUDY: 01/12/[address]: Wiliam Nguyen DO 2-DIMENSIONAL: YES M.MODE: YES DOPPLER: YES COLOR FLOW: YES TDS: PORTABLE: DEFINITY: BUBBLE STUDY: DIAGNOSIS: HISTORY OF CORNARY ARTERY DISEASE, EVALUATE FOR CONGESTIVE HEART FAILURE CARDIAC HISTORY: CATHERIZATION: YES SURGERY: NO PROSTHETIC VALVE: NO PACEMAKER: NO MEASUREMENTS (cm) DIASTOLIC (NORMALS) SYSTOLIC (NORMALS) IVSd 1.2 (0.6-1.2) LA Diam 2.9 (1.9-4.0) LVEF 75% LVIDd 3.5 (3.5-5.7) LVIDs 2.0 (2.0-3.5) %FS 43% LVPWd 1.3 (0.6-1.2) Ao Diam 2.6 (2.0-3.7) 2 DIMENSIONAL ASSESSMENT: RIGHT ATRIUM: NORMAL LEFT ATRIUM: NORMAL RIGHT VENTRICLE: NORMAL LEFT VENTRICLE: NORMAL TRICUSPID VALVE: NORMAL MITRAL VALVE: NORMAL PULMONIC VALVE: NORMAL AORTIC VALVE: NORMAL PERICARDIAL EFFUSION: NONE AORTIC ROOT: NORMAL LEFT VENTRICULAR WALL MOTION: DOPPLER/COLOR FLOW: COMMENTS: NORMAL 2-DIMENSIONAL ECHOCARDIOGRAM WITH DOPPLER. NO WALL MOTION ABNORMALITY. NO EFFUSION. TECHNOLOGIST: DOLLY JEROME
[2020-01-12] MEDS: ENOXAPARIN 40 MG/0.4 ML SQ SCH (20:25)
[2020-01-12] MEDS: ROSUVASTATIN 10 MG TAB PO SCH (20:25)
[2020-01-13 06:04] LABS: Potassium 3.5 mmol/L (3.5-5.1)
[2020-01-13 06:05] LABS: Albumin 2.3 g/dL (3.4-5.0); Bilirubin Total 0.4 mg/dL (0.2-1.0); Phosphorus 2.7 mg/dL (2.5-4.9); Protein, Total 5.3 g/dL (6.4-8.2)
[2020-01-13] MEDS ORDERED: POTASSIUM CL SA 10 MEQ TAB PO ONE ×2 (06:35→08:00)
[2020-01-13 06:40] LABS: Thyroid Stimulating Hormone 6.37 uIU/mL (0.360-3.740)
[2020-01-13] MEDS: INSULIN -REGULAR HUMAN 50 UNIT/0.5 ML ML SQ SCH ×2 (07:30→11:30)
[2020-01-13 08:33] VITALS: O2SAT 94
[2020-01-13] MEDS: ESCITALOPRAM 20 MG TAB PO SCH (09:00)
[2020-01-13] MEDS: PANTOPRAZOLE 40 MG INJ IVP SCH (09:00)
--- NOTE | 2020-01-13 10:17 | P.PN ---
Subjective Date of Service: 01/13/20 Primary Care Provider: Dr. Fountain Chief Complaint: S/P Rectosigmoid Colectomy Subjective: Improving, Doing well, Other (Patient passing stool.) Physical Examination - Vital Signs Temperature: 97.3 F Blood Pressure: 123/73 Pulse: 75 Respirations: 18 Pulse Ox (%): 93 - Physical Exam General: Alert, In no apparent distress, Oriented x3, Cooperative HEENT: Atraumatic Neck: Supple Respiratory: Clear to auscultation bilaterally, Normal air movement Cardiovascular: Normal pulses, Regular rate/rhythm Gastrointestinal: Normal bowel sounds, Soft and benign, Non-distended, Other ( Postop changes noted.) Neurological: Normal speech, Normal strength at 5/5 x4 extr, Normal tone, Normal affect - Studies Laboratory Data (last 24 hrs) 01/13/20 05:34: Sodium 139, Potassium 3.5, BUN 12, Creatinine 0.83, Glucose 98, Phosphorus 2.7, Magnesium 2.0, Total Bilirubin 0.4, AST 10 L, ALT 16, Alkaline Phosphatase 49 Medications List Reviewed: Yes Assessment & Plan Discharge Plan: Home Plan to discharge in: 24 Hours Physician Review Additional Text: Impression: Colon cancer status post proctosigmoidectomy, pathology showing moderately differentiated adenocarcinoma Possible postop ileus Postoperative anemia Edema to the lower extremity, right greater than left Hypertension Hyperlipidemia Depression CAD Plan: Colon cancer status post proctosigmoidectomy, pathology showing moderately differentiated adenocarcinoma: Patient has done well. Will discontinue IV fluids. Consider discharge today. Medically stable for discharge. Will discuss with surgery. Possible postop ileus: Patient improved. Patient has passed gas and stool. Consider discharge today. Encouraged incentive spirometer and ambulation. Postoperative anemia: Overall stable. Will monitor closely. Edema to the lower extremity, right greater than left: Venous Doppler negative. Discontinue IV fluids. Encourage low-salt diet. Encourage ambulation. Hypertension: Blood pressure improved all within normal range. No need for blood pressure at this time. May need to consider discontinuing blood pressure medication at discharge and monitoring. Will discuss with surgery. Hyperlipidemia: Continue Crestor Depression: Continue Lexapro CAD: Patient with history of CAD. In 2016 she had a stress test which was abnormal. She had a heart catheterization thereafter. Patient did not require stents at that time. Cardiology recommended to continue with aspirin and Plavix. Continue to hold aspirin and Plavix at this time. Will discuss with cardiology. Will obtain echocardiogram. Time Spent Managing Pts Care (In Minutes): 55
[2020-01-13 14:31] VITALS: BP 125/80; TEMP 97.8
== END 2020-01-13 13:45 | disposition home or self-care (01) | DRG 330 ==
LOC: OR 07:03 → 4TH 15:55 → OBSVTOIN 01-09 07:39
PROVIDERS: ADMIT Surgery; ATTEND Surgery
PROC: 0DTN0ZZ Resection of Sigmoid Colon, Open Approach (ICD-10-PCS; principal; 2020-01-08 08:30)
PROC: 0DBP0ZZ Excision of Rectum, Open Approach (ICD-10-PCS; 2020-01-08 08:30)
DX: C19 Malignant neoplasm of rectosigmoid junction (principal); K56.7 Ileus, unspecified; D64.9 Anemia, unspecified; I10 Essential (primary) hypertension; E78.5 Hyperlipidemia, unspecified; F32.9 Major depressive disorder, single episode, unspecified; I25.10 Atherosclerotic heart disease of native coronary artery without angina pectoris
CPT/HCPCS: 36415; 71045; 80048; 80053; 82947; 83735; 84100; 84439; 84443; 85014; 85018; 85025; 85610; 85730; 86850; 86900; 86901; 88307; 88309; 93306; 93970; 94760; 97116; 97161; 97530; C9113; G0378; J0690; J1170; J1650; J2250; J2405; J2704; J2710; J3010; J3475; J7030; J7120; J7799

== ENCOUNTER 2022-10-23 06:10 | Day surgery (SDC) | payer OTHER, MEDICARE ==
[2022-10-22 10:22] LABS: Potassium 3.5 mmol/L (3.5-5.1)
--- NOTE | 2022-10-22 16:00 | EKG ---
Test Date: 2022-10-22 Test Time: 09:46:18 Tank Welder: CATHIE MEASUREMENT RESULTS: Intervals: Rate: 61 [place]: 162 QRSD: 102 QT: 418 QTc: 420 [place]: P: 67 [place]: 162 QRS: -28 T: 34 INTERPRETIVE STATEMENTS: Normal sinus rhythm Minimal voltage criteria for LVH, may be normal variant Borderline ECG Compared to ECG 04/07/2005 11:25:00 Left ventricular hypertrophy now present Sinus bradycardia no longer present Electronically Signed On 10-22-22 15:59:31 [place] ADMINISTRATOR by Jann Ag
[2022-10-23] MEDS ORDERED: Ringers Lactate 1,000 ML IV ONE (06:16)
[2022-10-23] MEDS ORDERED: propofoL 200 MG/20 ML VIAL IV ONE (07:54)
[2022-10-23] MEDS ORDERED: LIDOCAINE 1% MPF 5 ML VIAL ONE (07:54)
--- NOTE | 2022-10-23 08:31 | ENDO RPT ---
[address], [address] COLONOSCOPY PROCEDURE REPORT EXAM DATE: 10/23/2022 PATIENT NAME: Linda Darden MR #: [id number] BIRTHDATE: 1950 ATTENDING: Kevan Morris DR STATUS: outpatient COMPRESS TRUCKER: Suzi Feliz RN and Maciel Linton [facility] INDICATIONS: The patient is a 72 yr old Female here for a colonoscopy due to History of Colon Cancer PROCEDURE PERFORMED: Colonoscopy with biopsy - cold polypectomy MEDICATIONS: Per Anesthesia. ESTIMATED BLOOD LOSS: None CONSENT: The patient understands the risks and benefits of the procedure and understands that these risks include, but are not limited to: sedation, allergic reaction, infection, perforation and/or bleeding. Alternative means of evaluation and treatment include, among others: physical exam, x-rays, and/or surgical intervention. The patient elects to proceed with this endoscopic procedure. DESCRIPTION OF PROCEDURE: During intra-op preparation period all mechanical medical equipment was checked for proper function. Hand hygiene and appropriate measures for infection prevention was taken. Procedure, possible complications, alternatives including, but not limited to possibility of bleeding, perforation, tear, infection, sepsis, need for surgery, need for blood transfusion, were explained to the patient. After the risks, benefits and alternatives of the procedure were thoroughly explained, Informed consent was verified, confirmed and timeout was successfully executed by the treatment team. The patient was placed in the left lateral position. A digital rectal exam was performed and revealed internal hemorrhoids. After appropriate level of anesthesia, the scope was passed. The [id number] ([id number]) endoscope was introduced through the anus and advanced to the cecum, which was identified by both the appendix and ileocecal valve. The quality of the prep was fair. The instrument was then slowly withdrawn as the colon was fully examined. Scope withdrawal time was 11 minutes. COLON FINDINGS: Two smooth sessile polyps ranging between 3-5mm in size with friable surfaces were found at the hepatic flexure and @ the [place]-Rectal Anastamosis in LEFT side. A polypectomy was performed with cold forceps. The resection was complete, the polyp tissue was completely retrieved and sent to histology. Retroflexed views revealed no abnormalities. The scope was then completely withdrawn from the patient and the procedure terminated. ADVERSE EVENTS: There were no complications. IMPRESSIONS: Two sessile polyps ranging between 3-5mm in size were found at the hepatic flexure; polypectomy was performed in a piecemeal fashion with cold forceps RECOMMENDATIONS: 1. avoid NSAIDS for 2 weeks 2. fiber rich diet 3. Monitor for any evidence of rectal bleeding. 4. yearly hemoquant 5. hemorrhoidal hygiene RECALL: for Colonoscopy, pending biopsy results. Kevan Morris DR eSigned: Kevan Morris DR 10/23/2022 8:30 AM cc: CPT CODES: ICD9 CODES: PATIENT NAME: Linda Darden MR#: [id number]
[2022-10-23 10:58] VITALS: BP 107/64; TEMP 97.2; O2SAT 100
== END 2022-10-23 08:58 | disposition home or self-care (01) ==
LOC: OR 06:10
PROVIDERS: ATTEND Surgery
PROC: 0DBL8ZX Excision of Transverse Colon, Via Natural or Artificial Opening Endoscopic, Diagnostic (ICD-10-PCS; principal; 2022-10-23 08:00)
DX: Z85.038 Personal history of other malignant neoplasm of large intestine (principal); D12.3 Benign neoplasm of transverse colon
CPT/HCPCS: 93005; 80048; 36415; 88305; 45380; J2704; J2001; J7120